=== PATIENT | male | born 1975 | race Caucasian/White ===

== ENCOUNTER 2018-06-19 13:44 | Emergency (ER) | payer BC ==
[2018-06-19] MEDS ORDERED: HYDROcodone/Acetaminophen 10/325 mg Tablet ONE (14:09)
--- NOTE | 2018-06-19 14:27 | RAD ---
RIGHT CLAVICLE 2 VIEWS: Date: 06/19/18 HISTORY: Trauma. Pain. COMPARISON: None. FINDINGS: There is a displaced, comminuted fracture involving the mid right clavicle. IMPRESSION: Mid right clavicle fracture. POS: [facility]
== END 2018-06-19 14:32 | disposition home or self-care (01) ==
LOC: MADERS 13:44
DX: S42.001A Fracture of unspecified part of right clavicle, initial encounter for closed fracture (principal); E03.9 Hypothyroidism, unspecified; E78.5 Hyperlipidemia, unspecified; F17.200 Nicotine dependence, unspecified, uncomplicated; V80.010A Animal-rider injured by fall from or being thrown from horse in noncollision accident, initial encounter

== ENCOUNTER 2018-12-27 13:25 | Emergency (ER) | payer BC ==
[~2018-12-27 13:25] MED LIST: Sodium Chloride Irrig Solution 250 ML BOT ONE
[2018-12-27] MEDS ORDERED: Lidocaine 1% w/Epinephrine 1:100K 30 ML VIAL ONE (13:36)
[2018-12-27] MEDS ORDERED: Bacitracin Zinc 1 Packet ONE (14:26)
== END 2018-12-27 14:35 | disposition home or self-care (01) ==
LOC: MADERS 13:25
DX: S01.111A Laceration without foreign body of right eyelid and periocular area, initial encounter (principal); E78.5 Hyperlipidemia, unspecified; F17.210 Nicotine dependence, cigarettes, uncomplicated; E03.9 Hypothyroidism, unspecified; Z79.899 Other long term (current) drug therapy; W18.30XA Fall on same level, unspecified, initial encounter
CPT/HCPCS: 12013; J2001

== ENCOUNTER 2023-10-04 15:43 | Emergency (ER) | payer BC, SELFPAY | END 2023-10-04 17:12 | disposition home or self-care (01) | LOC: MADERS 15:43 | DX: F10.129 Alcohol abuse with intoxication, unspecified (principal); E03.9 Hypothyroidism, unspecified; E78.00 Pure hypercholesterolemia, unspecified; I10 Essential (primary) hypertension; F17.220 Nicotine dependence, chewing tobacco, uncomplicated; Z79.899 Other long term (current) drug therapy | CPT/HCPCS: 99284 ==